=== PATIENT | male | born 1990 | race African-American/Black ===

== ENCOUNTER 2024-03-22 18:11 | Emergency (ER) | payer BC ==
[2024-03-22 18:39] VITALS: TEMP 98.7; BMI 38.4
[2024-03-22 19:40] LABS: HEMATOCRIT 47.8 % (35.4-49); HEMOGLOBIN 15.9 G/dL (11.7-16.9); MCH 30.3 pg (25.7-33.7); MCHC 33.3 g/dl (32.0-35.9); MEAN PLT VOLUME 8.2 fl (7.5-11.1); PLATELET COUNT 257.6 10^3/uL (134-434); RBC 5.25 10^6/uL (4.00-5.60); RDW 14.2 % (11.9-15.9); WHITE BLOOD COUNT 5.5 10^3/uL (4.0-10.8)
[2024-03-22 19:54] LABS: ALBUMIN 4.6 g/dl (3.4-5.0); BILIRUBIN,TOTAL 0.4 mg/dl (0.2-1); CALCIUM 9.7 mg/dl (8.5-10.1)
[2024-03-22 20:01] LABS: PLATELET ESTIMATE ADEQUATE
[2024-03-22 20:52] VITALS: BP 132/98; PULSE 85; RESP 18
== END 2024-03-22 21:01 | disposition home or self-care (01) ==
LOC: FER 18:11
DX: J40 Bronchitis, not specified as acute or chronic (principal); R05.9 Cough, unspecified; Z20.822 Contact with and (suspected) exposure to COVID-19
CPT/HCPCS: 0241U-QW; 36415; 71046-TC-FY; 80053; 84484; 85027; 85379; 93005; 99285-25